=== PATIENT | female | born 1945 | race African-American/Black ===

== ENCOUNTER 2018-05-31 23:40 | Inpatient (IN) ==
[2018-06-01] MEDS ORDERED: LORazepam 2 MG/1 ML VIAL IV STA (00:07)
[2018-06-01 01:29] LABS: Apearance,Urine CLEAR (Clear); Bilirubin,Urine Negative (Negative); Blood, Urine Moderate mg/dL (Negative); Glucose,Urine (UA) >=500 mg/dL (Negative); Ketones,Urine Negative (Negative); Nitrite,Urine Negative (Negative); Protein,Urine 100 MG/DL; RBC,Urine <1 /HPF (0-4); Urine Color Straw (Yellow); Urine Specific Gravity 1.023 (1.001-1.035); Urine Urobilinogen < 2.0 EU/DL (0.2-1.0)
[2018-06-01 01:57] LABS: Osmolality,Calculated 293.7 MOS/KG (273-304); Potassium 4.5 MMOL/L (3.5-5.1)
[2018-06-01 02:10] LABS: Barbiturates Screen,Urine Negative (Negative); Benzodiazepines Screen,Urine Negative (Negative); Cannabinoid Screen,Urine Negative (Negative); Opiate Screen,Urine Negative (Negative); Phencyclidine Screen,Urine Negative (Negative)
[2018-06-01 02:18] LABS: Basophils % 0.1 % (0.0-0.8); Hematocrit 36.4 VOL% (35.7-47.0); Hemoglobin 11.5 GM/DL (12.0-16.0); Immature Granulocytes % 2.5 %; Immature Granulocytes Absolute 0.48 #; Lymphocytes # 1.2 10*3/uL (1.4-4.0); Mean Corpuscular HGB Conc 31.6 GM/DL (32-36); Mean Corpuscular Hemoglobin 28 PG (27-34); Mean Corpuscular Volume 87.5 FL (87-102); Mean Platelet Volume 10.7 FL (9.6-12.0); Monocytes # 0.8 10*3/uL (0.11-0.8); Monocytes % 4.2 % (1.7-12.7); NRBC # 0.02 10*3/uL; Neutrophils # 16.7 10*3/uL (1.4-7.4); Neutrophils % 87.2 % (38.7-73.9); Platelet Count 282 T/CUMM (130-400); Red Blood Count 4.16 MC/CUMM (3.8-5.5); Red Cell Distribution Width 15.6 % (9.3-17.3); White Blood Count 19.2 T/CUMM (4-12)
[2018-06-01] MEDS ORDERED: ACETAMINOPHEN 325 MG TABLET PO PRN (03:07)
[2018-06-01] MEDS ORDERED: LORazepam 2 MG/1 ML VIAL IV PRN (03:07)
[2018-06-01] MEDS ORDERED: BISACODYL 5 MG TABLET PO PRN (03:07)
[2018-06-01] MEDS ORDERED: ONDANSETRON 4 MG/2 ML VIAL IV PRN (03:07)
[2018-06-01] MEDS ORDERED: SODIUM CHLORIDE 0.9% 1,000 ML IV SCH (03:30)
[2018-06-01] MEDS ORDERED: SODIUM CHLORIDE 0.9% 2,000 ML IV ONE (07:14)
[2018-06-01] MEDS: ALBUTEROL/IPRATROPIUM 3 ML NEB RESP TX SCH ×5 (07:30→21:20)
[2018-06-01 07:40] LABS: Free T4 (Free Thyroxine) 1.36 NG/DL (0.76-1.46)
[2018-06-01] MEDS ORDERED: SODIUM CHLORIDE 0.9% 1,000 ML IV ONE ×2 (07:50→11:11)
[2018-06-01] MEDS: LEVOFLOXACIN INJ 750 MG in PREMIX 1 EACH IV SCH (08:12)
[2018-06-01] MEDS: ENOXAPARIN 40 MG/0.4 ML SYRINGE SUBCUT SCH (08:13)
[2018-06-01] MEDS: PANTOPRAZOLE 40 MG TABLET PO SCH (08:13)
[2018-06-01] MEDS: PIPERACILLIN/TAZOBACTAM 3,375 MG in SODIUM CHLORIDE 0.9% 100 ML IV SCH ×2 (11:45→21:38)
[2018-06-01] MEDS ORDERED: GLUCAGON 1 MG VIAL IM PRN (14:28)
[2018-06-01] MEDS ORDERED: DEXTROSE 50% 25 GM/50 ML SYRINGE IV PRN (14:28)
[2018-06-01] MEDS ORDERED: VANCOMYCIN INJ 1,000 MG in SODIUM CHLORIDE 0.9% 250 ML IV ONE (14:30)
[2018-06-01] MEDS: LACTATED RINGERS 1,000 ML IV SCH (14:30)
[2018-06-01 15:21] LABS: ABG Base Excess -2.1 MMOL/L (-2.5-2.5); ABG HCO3 22.1 MMOL/L (20-26); ABG Oxygen Saturation 68.5 % (95-100); ABG PH 7.367 (7.35-7.45); ABG TCO2 20.9 MMOL/L (23-27)
[2018-06-01 15:32] LABS: Osmolality,Calculated 296.1 MOS/KG (273-304); Potassium 3.9 MMOL/L (3.5-5.1)
[2018-06-01] MEDS: INSULIN LISPRO 100 UNIT/ML SUBCUT SCH ×2 (16:31→21:38)
[2018-06-01] MEDS: amLODIPine 10 MG TABLET PO SCH (16:42)
[2018-06-01] MEDS: INSULIN ASPART PROTAMINE/ASPART 70/30 100 UNIT/ML SUBCUT SCH (16:43)
[2018-06-01] MEDS: CARVEDILOL 6.25 MG TABLET PO SCH (21:38)
[2018-06-01] MEDS: sitaGLIPtin 25 MG TABLET PO SCH (21:38)
[2018-06-01] MEDS: OSELTAMIVIR 75 MG CAPSULE PO SCH (21:38)
[2018-06-02] MEDS: ALBUTEROL/IPRATROPIUM 3 ML NEB RESP TX SCH ×7 (00:35→23:23)
[2018-06-02] MEDS: PIPERACILLIN/TAZOBACTAM 3,375 MG in SODIUM CHLORIDE 0.9% 100 ML IV SCH ×3 (05:03→22:47)
[2018-06-02 05:48] LABS: Basophils % 0.1 % (0.0-0.8); Hematocrit 37.8 VOL% (35.7-47.0); Hemoglobin 11.8 GM/DL (12.0-16.0); Immature Granulocytes % 1.1 %; Immature Granulocytes Absolute 0.15 #; Lymphocytes # 3.1 10*3/uL (1.4-4.0); Lymphocytes % 23.1 % (21.3-54.2); Mean Corpuscular HGB Conc 31.2 GM/DL (32-36); Mean Corpuscular Hemoglobin 27 PG (27-34); Mean Corpuscular Volume 87.1 FL (87-102); Mean Platelet Volume 10.6 FL (9.6-12.0); Monocytes % 7.3 % (1.7-12.7); Neutrophils # 9.1 10*3/uL (1.4-7.4); Neutrophils % 68.4 % (38.7-73.9); Platelet Count 286 T/CUMM (130-400); Red Blood Count 4.34 MC/CUMM (3.8-5.5); Red Cell Distribution Width 15.3 % (9.3-17.3); White Blood Count 13.3 T/CUMM (4-12)
[2018-06-02 06:09] LABS: Albumin 2.7 G/DL (3.4-5.0); Bilirubin,Total 0.8 MG/DL (0.2-1.0); Calcium 8.7 MG/DL (8.5-10.1); Osmolality,Calculated 282.4 MOS/KG (273-304); Potassium 3.4 MMOL/L (3.5-5.1)
[2018-06-02] MEDS ORDERED: POTASSIUM CHLORIDE 20 MEQ TABLET PO ONE (07:14)
[2018-06-02] MEDS: INSULIN LISPRO 100 UNIT/ML SUBCUT SCH ×4 (08:50→22:47)
[2018-06-02] MEDS: PANTOPRAZOLE 40 MG TABLET PO SCH (09:14)
[2018-06-02] MEDS: amLODIPine 10 MG TABLET PO SCH (09:14)
[2018-06-02] MEDS: CARVEDILOL 6.25 MG TABLET PO SCH ×2 (09:14→22:52)
[2018-06-02] MEDS: OSELTAMIVIR 75 MG CAPSULE PO SCH ×2 (09:14→22:51)
[2018-06-02] MEDS: ENOXAPARIN 40 MG/0.4 ML SYRINGE SUBCUT SCH (09:16)
[2018-06-02] MEDS: INSULIN ASPART PROTAMINE/ASPART 70/30 100 UNIT/ML SUBCUT SCH ×2 (09:16→16:40)
[2018-06-02] MEDS: LEVOFLOXACIN INJ 750 MG in PREMIX 1 EACH IV SCH (09:18)
[2018-06-02] MEDS ORDERED: VANCOMYCIN INJ 1,000 MG in SODIUM CHLORIDE 0.9% 250 ML IV ONE ×2 (15:00→16:30)
[2018-06-02] MEDS: sitaGLIPtin 25 MG TABLET PO SCH (22:51)
[2018-06-03] MEDS: ALBUTEROL/IPRATROPIUM 3 ML NEB RESP TX SCH ×5 (03:33→19:59)
[2018-06-03] MEDS: PIPERACILLIN/TAZOBACTAM 3,375 MG in SODIUM CHLORIDE 0.9% 100 ML IV SCH ×3 (05:52→20:50)
[2018-06-03] MEDS: LACTATED RINGERS 1,000 ML IV SCH ×2 (06:32→18:18)
[2018-06-03] MEDS: INSULIN LISPRO 100 UNIT/ML SUBCUT SCH ×4 (10:01→20:55)
[2018-06-03] MEDS: PANTOPRAZOLE 40 MG TABLET PO SCH (10:02)
[2018-06-03] MEDS: amLODIPine 10 MG TABLET PO SCH (10:02)
[2018-06-03] MEDS: CARVEDILOL 6.25 MG TABLET PO SCH ×2 (10:02→20:50)
[2018-06-03] MEDS: OSELTAMIVIR 75 MG CAPSULE PO SCH ×2 (10:02→20:50)
[2018-06-03] MEDS: INSULIN ASPART PROTAMINE/ASPART 70/30 100 UNIT/ML SUBCUT SCH ×2 (10:02→18:16)
[2018-06-03] MEDS: LEVOFLOXACIN INJ 750 MG in PREMIX 1 EACH IV SCH (10:04)
[2018-06-03] MEDS: ENOXAPARIN 40 MG/0.4 ML SYRINGE SUBCUT SCH (10:13)
[2018-06-03] MEDS: sitaGLIPtin 25 MG TABLET PO SCH (20:50)
[2018-06-04] MEDS: ALBUTEROL/IPRATROPIUM 3 ML NEB RESP TX SCH ×4 (00:28→10:32)
[2018-06-04] MEDS: PIPERACILLIN/TAZOBACTAM 3,375 MG in SODIUM CHLORIDE 0.9% 100 ML IV SCH ×2 (05:17→14:18)
[2018-06-04] MEDS: INSULIN ASPART PROTAMINE/ASPART 70/30 100 UNIT/ML SUBCUT SCH (09:36)
[2018-06-04] MEDS: OSELTAMIVIR 75 MG CAPSULE PO SCH (09:37)
[2018-06-04] MEDS: ENOXAPARIN 40 MG/0.4 ML SYRINGE SUBCUT SCH (09:37)
[2018-06-04] MEDS: amLODIPine 10 MG TABLET PO SCH (09:37)
[2018-06-04] MEDS: PANTOPRAZOLE 40 MG TABLET PO SCH (09:37)
[2018-06-04] MEDS: CARVEDILOL 6.25 MG TABLET PO SCH (09:38)
[2018-06-04] MEDS: LEVOFLOXACIN INJ 750 MG in PREMIX 1 EACH IV SCH (09:45)
[2018-06-04] MEDS: INSULIN LISPRO 100 UNIT/ML SUBCUT SCH ×2 (09:47→12:12)
[2018-06-04 12:13] VITALS: BP 154/75
== END 2018-06-04 14:23 | disposition home or self-care (01) | DRG 194 ==
LOC: N.EDINP 23:40 → N.ED 23:40 → N.2E 06-01 06:40
PROVIDERS: ADMIT Emergency Medicine; ATTEND Emergency Medicine

== ENCOUNTER 2021-12-25 14:00 | Observation (INO) ==
[2021-12-25 15:56] LABS: Basophils % 0.4 % (0.0-0.8); Eosinophils # 0.2 10*3/uL (0.0-0.87); Eosinophils % 2.7 % (0.00-10.9); Hematocrit 36.7 VOL% (35.7-47.0); Hemoglobin 11.6 GM/DL (12.0-16.0); Immature Granulocytes % 0.3 %; Immature Granulocytes Absolute 0.02 #; Lymphocytes # 3.6 10*3/uL (1.4-4.0); Lymphocytes % 47.8 % (21.3-54.2); Mean Corpuscular HGB Conc 31.6 GM/DL (32-36); Mean Corpuscular Volume 86.4 FL (87-102); Mean Platelet Volume 10.1 FL (9.6-12.0); Monocytes # 0.7 10*3/uL (0.11-0.8); Monocytes % 9.9 % (1.7-12.7); Neutrophils % 38.9 % (38.7-73.9); Platelet Count 268 T/CUMM (130-400); Red Blood Count 4.25 MC/CUMM (3.8-5.5); Red Cell Distribution Width 15.2 % (9.3-17.3); White Blood Count 7.5 T/CUMM (4-12)
[2021-12-25 16:06] LABS: PT Patient Result 10.9 SECS (10.1-12.1); Partial Thromboplastin Time 27.2 SECS (23.7-32.9)
[2021-12-25 16:21] LABS: Alanine Aminotransferase 16 U/L (13-56); Albumin 3.1 G/DL (3.4-5.0); Alkaline Phosphatase 95 U/L (45-117); Aspartate Amino Transferase 12 U/L (0-37); Bilirubin,Total < 0.39 MG/DL (0.20-1.00); Blood Urea Nitrogen 18 MG/DL (7-18); Calcium 9.3 MG/DL (8.5-10.1); Carbon Dioxide 30 MMOL/L (21-32); Chloride 106 MMOL/L (98-107); Glucose 104 MG/DL (74-106); Osmolality,Calculated 282.3 MOS/KG (273-304); Potassium 3.9 MMOL/L (3.5-5.1); Sodium 141 MMOL/L (136-145)
[2021-12-25] MEDS ORDERED: DOCUSATE SODIUM 100 MG CAPSULE PO PRN (16:26)
[2021-12-25] MEDS ORDERED: ONDANSETRON 4 MG/2 ML VIAL IV PRN (16:26)
[2021-12-25] MEDS ORDERED: DEXTROSE 50% 25 GM/50 ML VIAL IV PRN (16:26)
[2021-12-25] MEDS ORDERED: ACETAMINOPHEN 325 MG TABLET PO PRN (16:26)
[2021-12-25] MEDS ORDERED: DEXTROSE 10% 250 ML BAG IV PRN (16:26)
[2021-12-25] MEDS ORDERED: GLUCAGON 1 MG VIAL IM PRN ×2 (16:26)
[2021-12-25] MEDS ORDERED: ASPIRIN 325 MG TABLET PO STA (16:34)
[2021-12-25] MEDS: INSULIN REGULAR 100 UNIT/ML SUBCUT SCH ×2 (17:20→21:17)
[2021-12-25] MEDS: ROSUVASTATIN 20 MG TABLET PO SCH (21:16)
[2021-12-25] MEDS: ENOXAPARIN 40 MG/0.4 ML SYRINGE SUBCUT SCH (21:17)
[2021-12-26 04:04] LABS: Bacteria,Urine Few /HPF (Few); Bilirubin,Urine Negative (Negative); Blood, Urine Negative (Negative); Glucose,Urine (UA) Negative (Negative); Hyaline Casts,Urine 10 /LPF (0-3); Ketones,Urine Negative (Negative); Mucus,Urine Occasional /LPF (Occasional); Nitrite,Urine Negative (Negative); Protein,Urine Negative (Negative); RBC,Urine 1 /HPF (0-4); Squamous Epithelial Cell,Urine Occasional /HPF (0-10); Urine Appearance Clear (Clear); Urine Color Yellow (Yellow); Urine Specific Gravity 1.025 (1.001-1.035); Urine pH 5.5 (4.5-8.0)
[2021-12-26 04:05] LABS: Urine Urobilinogen 0.2 eU/dL (<2.0)
[2021-12-26 04:22] LABS: Barbiturates Screen,Urine Negative (Negative); Benzodiazepines Screen,Urine Negative (Negative); Cannabinoid Screen,Urine Negative (Negative); Opiate Screen,Urine Positive (Negative); Phencyclidine Screen,Urine Negative (Negative)
[2021-12-26 05:00] LABS: Basophils % 0.5 % (0.0-0.8); Eosinophils # 0.3 10*3/uL (0.0-0.87); Hemoglobin 11.1 GM/DL (12.0-16.0); Immature Granulocytes % 0.3 %; Immature Granulocytes Absolute 0.02 #; Lymphocytes # 3.4 10*3/uL (1.4-4.0); Lymphocytes % 52.7 % (21.3-54.2); Mean Corpuscular HGB Conc 31.7 GM/DL (32-36); Mean Corpuscular Volume 87.9 FL (87-102); Mean Platelet Volume 10.3 FL (9.6-12.0); Monocytes # 0.7 10*3/uL (0.11-0.8); Monocytes % 10.5 % (1.7-12.7); Platelet Count 244 T/CUMM (130-400); Red Blood Count 3.98 MC/CUMM (3.8-5.5); Red Cell Distribution Width 14.9 % (9.3-17.3); White Blood Count 6.5 T/CUMM (4-12)
[2021-12-26 05:24] LABS: Hypochromia Slight; Lymphocytes 61 % (20-55); Microcytosis Slight; Platelet Estimate Adequate; Total Cells Counted 100
[2021-12-26 05:32] LABS: Blood Urea Nitrogen 18 MG/DL (7-18); Calcium 9.2 MG/DL (8.5-10.1); Carbon Dioxide 27 MMOL/L (21-32); Chloride 107 MMOL/L (98-107); Cholesterol 113 MG/DL (50-200); Glucose 102 MG/DL (74-106); HDL Cholesterol 41 MG/DL (40-60); Osmolality,Calculated 282.3 MOS/KG (273-304); Risk Ratio 2.76; Sodium 141 MMOL/L (136-145); Thyroid Stimulating Hormone < 0.005 uIU/ml (0.358-3.74); Triglycerides 147 MG/DL (2-150); VLDL Cholesterol 29.4 MG/DL
[2021-12-26] MEDS: INSULIN REGULAR 100 UNIT/ML SUBCUT SCH ×4 (07:33→21:55)
[2021-12-26 08:22] LABS: Free T4 (Free Thyroxine) 1.24 NG/DL (0.76-1.46)
[2021-12-26] MEDS ORDERED: ASPIRIN 325 MG TABLET PO ONE (09:00)
[2021-12-26] MEDS: PANTOPRAZOLE 40 MG TABLET PO SCH (10:03)
[2021-12-26] MEDS: ROSUVASTATIN 20 MG TABLET PO SCH (20:53)
[2021-12-26] MEDS: ENOXAPARIN 40 MG/0.4 ML SYRINGE SUBCUT SCH (20:53)
[2021-12-27] MEDS: INSULIN REGULAR 100 UNIT/ML SUBCUT SCH ×3 (08:06→16:23)
[2021-12-27] MEDS: PANTOPRAZOLE 40 MG TABLET PO SCH (08:23)
[2021-12-27 16:04] VITALS: BP 142/78
== END 2021-12-27 17:45 | disposition home or self-care (01) ==
LOC: N.ED 14:00 → N.EDINP 14:00 → SUATTDRO 16:26 → N.3E 18:01
PROVIDERS: ADMIT Internal Medicine; ATTEND Emergency Medicine